=== PATIENT | male | born 1975 | race Caucasian/White ===

== ENCOUNTER 2016-09-23 07:40 | Day surgery (SDC) | payer BC ==
[2016-09-23 07:45] VITALS: BMI 28.0
[2016-09-23] MEDS ORDERED: NS 1000 ML 1,000 ML IV ONE (08:21)
[2016-09-23] MEDS ORDERED: ZOFRAN INJ 4 MG VIAL IVP ONE (08:22)
[2016-09-23] MEDS ORDERED: MORPHINE SULFATE INJ 4 MG IVP ONE (08:22)
--- NOTE | 2016-09-23 08:23 | DR.GENAD ---
HPI - PCP Primary Care Physician: NATALIIA - HPI Comment HPI Comment: HISTORY BELOW - Complaint/Symptoms Chief Complaint Doctors Comments: PAIN FROM RECTAL HEMORRHOID TIMES ONE. THIS AM BLEEDINDIMG HEAVILY AND MORE PAINFUL. HAVE USE PREPARATION H WITHOUT IMPROVEMENT. HAVE HEMORRHOID IN PAST BUT NO FLARE UP RECENTLY. NO FEVER. Chief Complaint:: PATIENT STATED THAT HE HAS HAD A HEMORRID THAT HAS BEEN THERE FOR A WEEK AND THIS MORNING HE WOKE UP TO BLOOD IN HIS BED. - Nurses notes reviewed Nurses Notes Review: Yes - Source History Provided: Patient - Mode of Arrival Mode of Arrival: Ambulatory - Timing Onset of Chief Complaint: 09/16/16 Came on: Suddenly - Duration Duration: Constant Duration: Days - Severity Severity: Moderate PMH - PMH Past Medical History: No Past Surgical History: No - Family History History of Family Medical Conditions: Yes Family Medical History: Cancer Family Medical History Comment: COPD - Social History Does patient currently use any type of tobacco product: No Have you used tobacco products in the last 12 months: No Type of Tobacco Use: None Does any household member use tobacco: No Alcohol Use: DAILY Do you use any recreational Drugs:: No Lives With: Family Lives Where: Home - infectious screening In the last 2 months have you had wt loss of >10#?: NO Have you had fever, night sweats or hemotysis?: No Have you traveled outside the country in the last 6 months?: No Isolation: Standard ROS - Review of Systems Constitutional: No Symptoms Reported Eyes: No Symptoms Reported ENTM: No Symptoms Reported Respiratoy: No Symptoms Reported Cardiovascular: No Symptoms Reported Gastrointestinal/Abdominal: Other (BLEEDING HEMORRHOID AND PAIN.) Genitourinary: Bleeding (FROM HEMORRHOID IN RECTAL AREA.) Neurological: No Symptoms Reported Musculoskeletal: No Symptoms Reported Integumentary: Other (THROMBOSE HEMORRHOID.) Hematologic/Lymphatic: No Symptoms Reported Endocrine: No Symptoms Reported All Other Systems: Reviewed and Negative PE - Vital Signs Vitals: Temperature 98.4 F Pulse Rate 91 Respiratory Rate 20 Blood Pressure 185/108 O2 Sat by Pulse Oximetry 98 - General Limitations: No Limitations General Appearance: Alert - Head Head Exam: Normal Inspection - Eyes Eye exam: Normal Appearance - ENT ENT Exam: Normal External Ear Exam - Neck Neck Exam: Trachea Midline - Chest Chest Inspection: Symmetric Chest Wall Rise - Respiratory Respiratory Exam: Normal Lung Sounds Bilat Respiratory Exam: Bilateral Clear to Auscultation - Cardiovascular Cardiovascular Exam: Regular Rate, Normal Rhythm, Normal Heart Sounds - Abdominal Exam Abdominal Exam: Normal Bowel Sounds, Soft, Other (BLEEDING, THROMBOSE RECTAL HEMORRHOID.) - Extremities Extremities Exam: Normal Inspection - Back Back Exam: Normal Inspection - Neurologic Neurological Exam: Alert, Oriented X3 - Psychiatric Psychiatric Exam: Anxious - Skin Skin Exam: Normal Color MDM - Differential Diagnosis Differential Diagnosis: TROMBOSE, BLEEDING HEMORRHOID. Course - Treatment Treatment: SEE ORDER. IV PAIN MED AND MED FOR PAIN IN ED. - Consultation Consultation Comments: DISCUSS PATIENT WITH DR. VILLARREAL. HE WILL TAKE PATIENT TO SURGERY THIS AM. - Education/Counseling Education/Counseling: Patient, Education Educated On: Diagnosis ROR - Labs Reviewed Laboratory Results Reviewed?: Yes Result Diagrams: 09/23/16 08:29 09/23/16 08: Laboratory: WBC 5.7 X10^3/uL (3.6-10.0) 09/23/16 08: RBC 4.72 X10^6/uL (4.7-6.0) 09/23/16 08:29 Hgb 15.9 g/dL (13.5-18.0) 09/23/16 08: Hct 44.4 % (42.0-54.0) 09/23/16 08: MCV 94.2 fL (80.0-100.0) 09/23/16 08: MCH 33.7 pg (27.0-34.0) 09/23/16 08: MCHC 35.8 g/dL (33.0-35.0) H 09/23/16 08: RDW 12.9 % (11.6-16.5) 09/23/16 08: Plt Count 208 X10^3/uL (150.0-450.0) 09/23/16 08: MPV 8.2 fL (7.4-11.0) 09/23/16 08: Neut % 56.9 % (42.0-75.0) 09/23/16 08: Lymph % 25.9 % (21.0-51.0) 09/23/16 08: [place] % 11.0 % (0.0-13.0) 09/23/16 08: Eos % 5.1 % (0.9-2.9) H 09/23/16 08:29 Baso % 1.1 % (0.2-1.0) H 09/23/16 08:29 Neut # 3.3 x10^3/uL (2.2-4.8) 09/23/16 08:29 Lymph # 1.5 X10^3/uL (1.3-2.9) 09/23/16 08:29 [place] # 0.6 x10^3/uL (0.3-0.8) 09/23/16 08:29 Eos # 0.3 x10^3/uL (0.0-0.2) H 09/23/16 08:29 Baso # 0.1 X10^3/uL (0.0-0.1) 09/23/16 08:29 Absolute Nucleated RBC 0.0 /100WBC 09/23/16 08:29 INR Target Range - 09/23/16 08:29 INR 1.02 (0.8-1.3) 09/23/16 08:29 PTT 25.9 SECONDS (22.9-36.5) 09/23/16 08:29 PTT Comment - 09/23/16 08:29 Sodium 141 mmol/L (136-145) 09/23/16 08:29 Corrected Sodium 141 mmol/L (136-145) 09/23/16 08:29 Potassium 4.3 mmol/L (3.5-5.1) 09/23/16 08:29 Chloride 107 mmol/L (98-107) 09/23/16 08:29 Carbon Dioxide 28.7 mmol/L (21-32) 09/23/16 08:29 BUN 9 mg/dL (7-18) 09/23/16 08:29 Creatinine 0.77 mg/dL (0.70-1.30) 09/23/16 08:29 Est GFR (MDRD) Af Amer > 60 (>60) 09/23/16 08:29 Est GFR (MDRD) Non-Af > 60 (>60) 09/23/16 08:29 Glucose 112 mg/dL (65-99) H 09/23/16 08:29 Calcium 8.2 mg/dL (8.5-10.1) L 09/23/16 08:29 Corrected Calcium TNP 09/23/16 08:29 Total Bilirubin 0.60 mg/dL (0.2-1.0) 09/23/16 08:29 AST 78 Units/L (15-37) H 09/23/16 08:29 ALT 152 Units/L (12-78) H 09/23/16 08:29 Alkaline Phosphatase 84 Units/L (46-116) 09/23/16 08:29 Total Protein 7.7 g/dL (6.4-8.2) 09/23/16 08:29 Albumin 3.7 g/dL (3.4-5.0) 09/23/16 08:29 Globulin 4.0 g/dL (2.5-4.5) 09/23/16 08:29 Albumin/Globulin Ratio 0.9 Ratio (1.1-2.1) L 09/23/16 08:29 - Diagnosis Discharge Problem: Thrombosed hemorrhoids, Bleeding hemorrhoid, Rectal pain - Discharge Plan Condition: Stable - Follow ups/Referrals - Instructions
[2016-09-23 08:40] LABS: EOSINOPHILS # (AUTO) 0.3 x10^3/uL (0.0-0.2); HEMOGLOBIN 15.9 g/dL (13.5-18.0); LYMPHOCYTES # (AUTO) 1.5 X10^3/uL (1.3-2.9); MEAN CORPUSCULAR HGB CONC 35.8 g/dL (33.0-35.0); MONOCYTES # (AUTO) 0.6 x10^3/uL (0.3-0.8); NEUTROPHILS # (AUTO) 3.3 x10^3/uL (2.2-4.8); WHITE BLOOD COUNT 5.7 X10^3/uL (3.6-10.0)
[2016-09-23] MEDS ORDERED: ZOFRAN INJ 4 MG VIAL ONE (08:49)
[2016-09-23] MEDS ORDERED: NS 1000 ML 1,000 ML ONE (08:49)
[2016-09-23] MEDS ORDERED: MORPHINE SULFATE INJ 4 MG ONE (08:50)
[2016-09-23 08:52] LABS: BASOPHILS # (AUTO) 0.1 X10^3/uL (0.0-0.1); BASOPHILS % (AUTO) 1.1 % (0.2-1.0); EOSINOPHILS % (AUTO) 5.1 % (0.9-2.9); HEMATOCRIT 44.4 % (42.0-54.0); LYMPHOCYTES % (AUTO) 25.9 % (21.0-51.0); MEAN CORPUSCULAR HEMOGLOBIN 33.7 pg (27.0-34.0); MEAN CORPUSCULAR VOLUME 94.2 fL (80.0-100.0); MEAN PLATELET VOLUME 8.2 fL (7.4-11.0); NEUTROPHILS % (AUTO) 56.9 % (42.0-75.0); PLATELET COUNT 208 X10^3/uL (150.0-450.0); RED BLOOD COUNT 4.72 X10^6/uL (4.7-6.0); RED CELL DISTRIBUTION WIDTH 12.9 % (11.6-16.5)
[2016-09-23 08:53] LABS: ALANINE AMINOTRANSFERASE 152 Units/L (12-78); ALBUMIN 3.7 g/dL (3.4-5.0); ALKALINE PHOSPHATASE 84 Units/L (46-116); ASPARTATE AMINO TRANSFERASE 78 Units/L (15-37); BLOOD UREA NITROGEN 9 mg/dL (7-18); CALCIUM 8.2 mg/dL (8.5-10.1); CARBON DIOXIDE 28.7 mmol/L (21-32); CHLORIDE 107 mmol/L (98-107); COR NA(FOR HYPERGLY) 141 mmol/L (136-145); CREATININE 0.77 mg/dL (0.70-1.30); GLUCOSE 112 mg/dL (65-99); SODIUM 141 mmol/L (136-145); TOTAL PROTEIN 7.7 g/dL (6.4-8.2); eGFR BLACK RACES > 60 (>60); eGFR NON BLACK RACES > 60 (>60)
[2016-09-23] MEDS ORDERED: DIPRIVAN VIAL ONE (10:19)
[2016-09-23] MEDS ORDERED: DILAUDID INJ IM ONE (10:29)
[2016-09-23] MEDS ORDERED: DILAUDID INJ ONE (10:32)
[2016-09-23] MEDS ORDERED: FENTANYL INJ 250 mcg ONE (12:23)
[2016-09-23] MEDS ORDERED: ANCEF VIAL 1 GM ONE (12:32)
[2016-09-23] MEDS ORDERED: NS 50 ML IV + SPIKE MINIBAG* 100 ML IV ONE (12:32)
[2016-09-23] MEDS ORDERED: XYLOCAINE 1 % (PLAIN) ONE (12:37)
[2016-09-23] MEDS ORDERED: MARCAINE 0.25% WITH EPI IJ ONE (12:56)
[2016-09-23] MEDS ORDERED: NS IRRIGATION 1000 ML 1,000 ML IR ONE (12:56)
[2016-09-23 14:20] VITALS: BP 169/89
[2016-09-23] MEDS ORDERED: KETALAR ONE (14:46)
== END 2016-09-23 14:17 | disposition home or self-care (01) ==
LOC: SURG1 07:56 → ER 07:56 → EDSTATUS 12:26 → SURG1 14:17
PROVIDERS: ATTEND Student in an Organized Health Care Education/Training Program
PROC: 06LY0ZC Occlusion of Hemorrhoidal Plexus, Open Approach (ICD-10-PCS; principal; 2016-09-23 12:15)
DX: K64.5 Perianal venous thrombosis (principal)
CPT/HCPCS: 36415; 80053; 85025; 85610; 85730; 96365; 96374; 96375; 99284; A4222; S0020; J0690; J1170; J2001; J2270; J2405; J3010; J3490

== ENCOUNTER 2016-09-26 14:41 | Emergency (ER) | payer BC ==
[2016-09-26 14:48] VITALS: BP 163/110; BMI 28.0
[2016-09-26] MEDS ORDERED: DULCOLAX TAB EC 5 MG PO ONE (18:24)
[2016-09-26] MEDS ORDERED: TYLENOL #3 TAB (W/CODEINE) PO STA (18:25)
[2016-09-26] MEDS ORDERED: NUPERCAINAL TOP STA (18:29)
--- NOTE | 2016-09-26 18:36 | DR.GENAD ---
HPI - PCP Primary Care Physician: nfd - Complaint/Symptoms Chief Complaint Doctors Comments: Patient had hemorrhoid surgery by Dr. Ramirez recently and states the pain has gotten worst today and he is unable to set down or lay on his buttock due to severe pain. Patient state the pain is 6 of 10. states he had a small stool today with incareased pain. States he has not seen any bleeding since having the surgery. States he has not been using any creams or sitz baths because he is at his girl friend house and she does not have a tube. He denies fever or chills. States his girl friend looked and said it looked bettter and she could not see what was causing all the pain. Chief Complaint:: patient had hemiorrid surgery 4 days ago and he stated the pain is to much. - Nurses notes reviewed Nurses Notes Review: Yes - Source History Provided: Patient - Mode of Arrival Mode of Arrival: Ambulatory - Timing Onset of Chief Complaint: 09/23/16 Came on: Gradually - Duration Duration: Constant How lon Duration: Days - Location Location: rectal pain - Severity Severity: Moderate - Modifying Factors Worsens:: setting down Improves:: movement PMH - PMH Past Medical History: Yes Past Medical History: Hypertension Past Surgical History: No Past Surgical History Comment: hemarroid - Family History History of Family Medical Conditions: Yes Family Medical History: Cancer - Social History Does patient currently use any type of tobacco product: No Have you used tobacco products in the last 12 months: No Type of Tobacco Use: Smokeless How many years tobacco product used: 30 Does any household member use tobacco: No Alcohol Use: None Do you use any recreational Drugs:: No Lives With: Family Lives Where: Home - infectious screening In the last 2 months have you had wt loss of >10#?: NO Have you had fever, night sweats or hemotysis?: No Have you traveled outside the country in the last 6 months?: No Isolation: Standard ROS - Review of Systems Constitutional: No Symptoms Reported. negative: See HPI, Chills, Diaphoresis, Fever, Malaise, Weakness, Irritable, Fatigue, Loss of Appetite, Other Eyes: No Symptoms Reported. negative: See HPI, Eye Pain, Blurred Vision, Tearing, Discharge, Photophobia, Diplopia, Other ENTM: No Symptoms Reported Respiratoy: No Symptoms Reported Cardiovascular: No Symptoms Reported. negative: See HPI, Chest Pain, Edema, Palpitations, Syncope, Cyanosis, Skin Mottling, Other Gastrointestinal/Abdominal: No Symptoms Reported, Constipation. negative: See HPI, Abdominal Pain, Diarrhea, Nausea, Vomiting, Food Intolerance, Other Genitourinary: No Symptoms Reported Neurological: No Symptoms Reported Musculoskeletal: negative: No Symptoms Reported, See HPI, Back Pain, Gout, Joint Pain, Joint Swelling, Muscle Pain, Muscle Stiffness, Neck Pain, Right, Left, Neck, Chest wall, Rib(s), Back, Shoulder, Arm, Elbow, Forearm, Wrist, Hand , Pelvis, Hip, Leg, Knee, Ankle, Foot, Other Integumentary: No Symptoms Reported. negative: See HPI, Change in Color, Change in Hair/Nails, Dryness, Lesions, Lumps, Rash, Itching, Wound, Bruises, Juandice, Other Hematologic/Lymphatic: No Symptoms Reported Endocrine: No Symptoms Reported Psychiatric: No Symptoms Reported PE - Vital Signs Vitals: Temperature 98.6 F Pulse Rate 61 Respiratory Rate 16 Blood Pressure 163/110 O2 Sat by Pulse Oximetry 99 - General Limitations: No Limitations General Appearance: Alert, In Distress (moderate) - Head Head Exam: Normal Inspection, Atraumatic, Normocephalic - Eyes Eye exam: Normal Appearance, PERRL, EOMI. negative: Scleral Icterus, Conjunctival Injection, Nystagmus, Miosis, Mydrasis, Periorbital Swelling, Periorbital Tenderness, Other - ENT ENT Exam: Normal Exam, Normal Oropharynx, Normal External Ear Exam, Mucous Membranes Moist, TM's Normal Bilaterally External Ear Exam: Normal External Inspection TM/Canal Exam: Bilateral Normal Nose Exam: Normal Nose Exam Mouth Exam: Normal Inspection Throat Exam: Normal Inspection - Neck Neck Exam: Normal Inspection, Full ROM, Trachea Midline. negative: Tenderness, Meningismus, Lymphadenopathy, Thyromegaly, Other - Chest Chest Inspection: Normal Inspection, Symmetric Chest Wall Rise - Respiratory Respiratory Exam: Normal Lung Sounds Bilat. negative: Accessory Muscle Use, Chest Wall Tenderness, Prolonged Expiratory Phase, Respiratory Distress, Stridor , Other Respiratory Exam: Bilateral Clear to Auscultation - Cardiovascular Cardiovascular Exam: Regular Rate, Normal Rhythm, Normal Heart Sounds - Abdominal Exam Abdominal Exam: Normal Inspection, Normal Bowel Sounds, Soft Abdominal Tenderness: negative: RUQ, RLQ, LUQ, LLQ, Epigastrium, Suprapubic, Diffuse, Mild, Moderate, Severe, Other - Extremities Extremities Exam: Normal Inspection, Full ROM, Tenderness, Normal Capillary Refill. negative: Edema, Joint Swelling, Calf Tenderness, Other - Back Back Exam: Normal Inspection, Full ROM. negative: Tenderness, (R) CVA Tenderness, (L) CVA Tenderness, Muscle Spasm, Paraspinal Tenderness, Vertebral Tenderness, Rashes, (R) Sciatic Notch Tenderness, (L) Sciatic Notch Tendern, (R ) Straight Leg Raise, (L) Straight Leg Raise, Other - Neurologic Neurological Exam: Alert, Oriented X3, CN II-XII Intact, Normal Gait, Reflexes Normal - Psychiatric Psychiatric Exam: Normal Affect, Normal Mood - Skin Skin Exam: Warm, Dry, Intact, Normal Color - Other Exam Other Exam: Rectal with multiple hemmorhoidal tags six o'clock; no erythema; nos swelling or discharge noted. - Diagnosis Discharge Problem: Hemorrhoids, Proctalgia - Discharge Plan Disposition: HOME, SELF-CARE Condition: Stable Prescriptions: Acetaminophen/Codeine Tab [TYLENOL w/CODEINE #3 (300 MG/30 MG) *] 1 tab PO Q4- 6H PRN #24 tab PRN Reason: Pain Bisacodyl EC [DULCOLAX TAB EC 5 MG *] 5 mg PO HS #15 tabec Dibucaine 1% Oint [NUPERCAINAL OINT 1% *] 1 applic KS TID PRN #1 tube PRN Reason: - Follow ups/Referrals Follow ups/Referrals: NFD,None [Primary Care Provider] - 3 days KAREL ROMO [STAFF PHYSICIAN] - 3 days - Instructions Instructions: Disposable Sitz Bath, Surgical Procedures for Hemorrhoids, Care After, How to Take a Sitz Bath, Hemorrhoids, [id number]
[2016-09-26] MEDS ORDERED: CHRONULAC ONE (18:45)
[2016-09-26] MEDS ORDERED: TYLENOL #3 TAB (W/CODEINE) PO ONE (18:45)
[2016-09-26] MEDS ORDERED: CHRONULAC PO SCH (19:00)
== END 2016-09-26 18:56 | disposition home or self-care (01) ==
LOC: ER 14:55
DX: K64.9 Unspecified hemorrhoids (principal); K62.89 Other specified diseases of anus and rectum
CPT/HCPCS: 99282

== ENCOUNTER 2017-02-03 21:17 | Emergency (ER) | payer BC ==
[2017-02-03 21:27] VITALS: BMI 26.6
[2017-02-03] MEDS ORDERED: CATAPRES TAB 0.1 MG PO ONE (22:33)
--- NOTE | 2017-02-03 22:33 | DR.GENAD ---
HPI - PCP Primary Care Physician: NFD - Complaint/Symptoms Chief Complaint Doctors Comments: Patient states that he has a history of headaches and hypertension. He has not seen a physician in a long time. He states that the headache is better today. Chief Complaint:: PT STATES" I BEEN HAVING A BAD HEADACHE FOR ABOUT 2 WEEKS GOT WORSE ON WEDNESDAY MY NOSE BLEED YESTERDAY AND KAVITHA BEEN VOMITING AND SEEING BLACK SPOTS" PT HAS HX OF HYPERTENSION BUT DOES NOT TAKE MEDICATIONS" - Source History Provided: Patient - Mode of Arrival Mode of Arrival: Ambulatory - Timing Onset of Chief Complaint: 02/01/17 PMH - PMH Past Medical History: Yes Past Medical History: Hypertension Past Surgical History: Yes Past Surgical History Comment: HEMMOROIDECTOMY - Family History History of Family Medical Conditions: Yes Family Medical History: Cancer - Social History Type of Tobacco Use: Smokeless Alcohol Use: None Do you use any recreational Drugs:: No Lives With: Family Lives Where: Home - infectious screening In the last 2 months have you had wt loss of >10#?: NO Have you had fever, night sweats or hemotysis?: No Have you traveled outside the country in the last 6 months?: No Isolation: Standard ROS - Review of Systems Eyes: No Symptoms Reported ENTM: No Symptoms Reported Respiratoy: No Symptoms Reported Cardiovascular: No Symptoms Reported Gastrointestinal/Abdominal: No Symptoms Reported Genitourinary: No Symptoms Reported Neurological: No Symptoms Reported Musculoskeletal: No Symptoms Reported Integumentary: No Symptoms Reported Hematologic/Lymphatic: No Symptoms Reported Endocrine: No Symptoms Reported Psychiatric: No Symptoms Reported All Other Systems: Reviewed and Negative PE - Vital Signs Vitals: Temperature 98.6 F Pulse Rate 99 Respiratory Rate 18 Blood Pressure [Left Arm] 159/102 Blood Pressure 178/111 O2 Sat by Pulse Oximetry 98 - General Limitations: No Limitations General Appearance: Alert, In No Apparent Distress - Head Head Exam: Normal Inspection, Atraumatic - Eyes Eye exam: Normal Appearance, PERRL, EOMI - ENT ENT Exam: Normal Exam External Ear Exam: Normal External Inspection TM/Canal Exam: Bilateral Normal Nose Exam: Normal Nose Exam Mouth Exam: Normal Inspection Throat Exam: Normal Inspection, Tonsillar Erythema - Neck Neck Exam: Normal Inspection, Full ROM - Chest Chest Inspection: Normal Inspection, Symmetric Chest Wall Rise - Respiratory Respiratory Exam: Normal Lung Sounds Bilat Respiratory Exam: Bilateral Clear to Auscultation - Cardiovascular Cardiovascular Exam: Regular Rate, Normal Rhythm - Abdominal Exam Abdominal Exam: Normal Inspection, Normal Bowel Sounds Abdominal Tenderness: negative: RUQ, RLQ, LUQ, LLQ, Epigastrium, Suprapubic, Diffuse, Mild, Moderate, Severe, Other - Extremities Extremities Exam: Normal Inspection - Back Back Exam: Normal Inspection - Neurologic Neurological Exam: Alert, Oriented X3, CN II-XII Intact - Psychiatric Psychiatric Exam: Normal Affect, Normal Mood, Depressed - Skin Skin Exam: Warm, Dry, Intact Course - Reevaluation 1st: Improved ROR - XRAY XRAY Interpreted by: Radiologist (CT Sinus: Trace mucosal thickening of the maxillary sinuses which can be seen with sinusitis. Demonstrable patency of the frontal recesses,sphenoethmoidal recesses,and ostiomeatal units.) - Diagnosis Discharge Problem: Elevated blood pressure reading Maxillary sinusitis, acute Qualifiers: Recurrence: non-recurrent Qualified Code(s): J01.00 - Acute maxillary sinusitis , unspecified - Discharge Plan Condition: Stable - Follow ups/Referrals Follow ups/Referrals: NFD,None [Primary Care Provider] - 3 days - Instructions
[2017-02-03] MEDS ORDERED: CATAPRES TAB 0.1 MG ONE (22:35)
--- NOTE | 2017-02-03 23:12 | CT ---
CT SINUSES CLINICAL HISTORY: 41-year-old male with headache for 2 weeks. COMPARISON: None. TECHNIQUE: Multiple, noncontrast axial CT images of the paranasal sinuses were obtained and reformatt ed in the axial, sagittal, and coronal planes. The resulting images were processed with soft tissue and bone algorithm. FINDINGS: Limited intracranial evaluation demonstrates no acute abnormalities. The orbits and globes are within normal limits. The frontal sinuses and frontal recesses are clear. The anterior and liability analyst ior ethmoidal air cells are clear. The sphenoid sinuses are clear. The intersinus septum slightly t o the left of midline. The sphenoid ostia and sphenoethmoidal recesses are clear. The mastoid air isabel ls, mastoid antrum, and tympanic cavities are clear. Skull base foramina are normal in appearance. Tr julianna mucosal thickening of the maxillary sinuses. The maxillary ostia, infundibula, and middle meati a re patent. No fluid levels are identified. Nasal cavity is within normal limits. Nasopharynx is oral l. IMPRESSION: 1. Trace mucosal thickening of the maxillary sinuses which can be seen with sinusitis. 2. Demonstrable patency of the frontal recesses, sphenoethmoidal recesses, and ostiomeatal units. Reported By:
[2017-02-03 23:52] VITALS: BP 153/101
== END 2017-02-03 23:51 | disposition home or self-care (01) ==
LOC: ER 21:37
DX: J01.80 Other acute sinusitis (principal); R03.0 Elevated blood-pressure reading, without diagnosis of hypertension
CPT/HCPCS: 70486; 99282

== ENCOUNTER 2017-04-06 20:03 | Emergency (ER) | payer BC ==
[2017-04-06 20:10] VITALS: BMI 26.7
--- NOTE | 2017-04-06 20:51 | DR.GENAD ---
HPI - PCP Primary Care Physician: nfd - Complaint/Symptoms Chief Complaint Doctors Comments: Patient reports that he has been lifting heavy block for the past 3-4 days but he started getting worse and left job today. Chief Complaint:: LOWER ABD PAIN, SUPRA PUBIC PAIN RADIATES THROUGH TESTICLES SINCE WEDNESDAY. I STARTED A NEW JOB AND ITS REAL PHYSICAL , SO I DON'T KNOW IF THAT HAS SOMETHING TO DO WITH IT. I HAVE HAD SOME TROUBLE WITH GETTING GOING- URINATING FOR A WHILE NOW. - Source History Provided: Patient - Mode of Arrival Mode of Arrival: Ambulatory - Timing Onset of Chief Complaint: 04/03/17 PMH - PMH Past Medical History: Yes Past Medical History: Hypertension Past Surgical History: Yes Past Surgical History Comment: HEMORRHOID SURGERY - Family History History of Family Medical Conditions: Yes Family Medical History: Cancer - Social History Does patient currently use any type of tobacco product: No Have you used tobacco products in the last 12 months: No Type of Tobacco Use: Smokeless Alcohol Use: Occasionally Do you use any recreational Drugs:: No Lives With: Family Lives Where: Home - infectious screening Have you traveled outside the country in the last 6 months?: No Isolation: Standard ROS - Review of Systems Eyes: No Symptoms Reported ENTM: No Symptoms Reported Respiratoy: No Symptoms Reported Cardiovascular: No Symptoms Reported Gastrointestinal/Abdominal: No Symptoms Reported Genitourinary: No Symptoms Reported Neurological: No Symptoms Reported Musculoskeletal: No Symptoms Reported Integumentary: No Symptoms Reported Hematologic/Lymphatic: No Symptoms Reported Endocrine: No Symptoms Reported Psychiatric: No Symptoms Reported All Other Systems: Reviewed and Negative PE - Vital Signs Vitals: Temperature 98.4 F Pulse Rate 95 Respiratory Rate 20 Blood Pressure [Left Arm] 153/101 Blood Pressure 143/91 O2 Sat by Pulse Oximetry 100 - General Limitations: No Limitations General Appearance: Alert - Head Head Exam: Normal Inspection - ENT ENT Exam: Normal Exam External Ear Exam: Normal External Inspection TM/Canal Exam: Bilateral Normal Nose Exam: Normal Nose Exam Mouth Exam: Normal Inspection Throat Exam: Normal Inspection - Neck Neck Exam: Normal Inspection, Full ROM - Chest Chest Inspection: Normal Inspection - Respiratory Respiratory Exam: Normal Lung Sounds Bilat Respiratory Exam: Bilateral Clear to Auscultation - Cardiovascular Cardiovascular Exam: Regular Rate, Normal Rhythm - Abdominal Exam Abdominal Exam: Normal Inspection, Normal Bowel Sounds Abdominal Tenderness: negative: RUQ, RLQ, LUQ, LLQ, Epigastrium, Suprapubic, Diffuse, Mild, Moderate, Severe, Other - Extremities Extremities Exam: Normal Inspection, Full ROM - Back Back Exam: Normal Inspection - Neurologic Neurological Exam: Alert, Oriented X3, CN II-XII Intact - Psychiatric Psychiatric Exam: Normal Affect - Skin Skin Exam: Warm, Dry, Intact ROR - XRAY XRAY Interpreted by: Radiologist (Testicular ultrasound: The testicles demonstrate normal echotexture. No intra parenchymal mass or infiltrative process can be identified. No significant varicocele. No obvious right hydrocele. Small left hydrocele. Normal color flow of the right testicle. There is increased vascular flow of the left testicle. The right testicle measures 4.4x2.4x3.7cm. The left testicle measures 4.2x2.4x3.7cm. The right epididymis appears normal. There is a heterogeneous appearance to the left epididymis. Impression. Constellation of findings likely representing left epididymo-orchitis. The right testicle appears normal.) - Diagnosis Discharge Problem: Epididymitis, Epididymo-orchitis - Discharge Plan Condition: Stable Prescriptions: Doxycycline Hyclate 100 mg PO BID #20 tablet.dr - Follow ups/Referrals Follow ups/Referrals: NFD,None [Primary Care Provider] - 3 days - Instructions
[2017-04-06] MEDS ORDERED: MORPHINE SULFATE INJ 4 MG IVP ONE (20:57)
[2017-04-06] MEDS ORDERED: MORPHINE SULFATE INJ 4 MG ONE (20:58)
[2017-04-06] MEDS ORDERED: ROCEPHIN VIAL 250 MG IM ONE (22:01)
[2017-04-06] MEDS ORDERED: XYLOCAINE 1 % (PLAIN) ONE (22:13)
[2017-04-06] MEDS ORDERED: ROCEPHIN VIAL 250 MG ONE (22:13)
[2017-04-06] MEDS ORDERED: ROCEPHIN VIAL 250 MG IV ONE (22:23)
--- NOTE | 2017-04-06 22:25 | US ---
HISTORY: Severe left testicular pain. Study: Testicular ultrasound. Comparison: None. Technique: Multiple forte scale and Doppler images of the right and left testicles were obtained Findings: The testicles demonstrate normal echotexture. No intra parenchymal mass or infiltrative process can b e identified. No significant varicocele. No obvious right hydrocele. Small left hydrocele. Normal col or flow of the right testicle. There is increased vascular flow of the left testicle. The right testi antonia measures 4.4 x 2.4 x 3.7 cm. The left testicle measures 4.2 x 2.4 x 3.7 cm. The right epididymis appears normal. There is a heterogeneous appearance to the left epididymis. IMPRESSION: Constellation of findings likely representing left epididymo-orchitis. The right testicle appears normal. Reported By:
[2017-04-06 22:47] VITALS: BP 142/94
== END 2017-04-06 22:53 | disposition home or self-care (01) ==
LOC: ER 20:13
DX: N45.1 Epididymitis (principal); N45.3 Epididymo-orchitis
CPT/HCPCS: 76870; 96365; 96374; 96375; 99282; 99283; A4222; J0696; J2001; J2270